=== PATIENT | male | born 1990 | race African-American/Black ===

== ENCOUNTER → 2019-03-05 | Emergency (ER) | payer SELFPAY ==
[~2019-03-05] VITALS: Ht 180.3 cm; Wt 72.6 kg
[~2019-03-05] MED LIST: CEPHALEXIN500 MG ORAL; DIPHENHYDRAMINE25 M1 ORAL; IMITREX50 MG ORAL; NKM; PREDNISONE20 MG ORAL; TRIUMEQ 600-501 EACH PO
--- NOTE | 2019-03-05 07:36 | NUR ---
ED Nurse Note: Pt BIBA d/t pt's verbalization of allergic reaction. Pt is AOx3, ambulatory, on RA. Placed on bed. Per assessement, pt verbalized, "I just came from my friend's gym and i noticed my skin-this organ that i have for 30 years seems to start getting weird 45 mins ago." Pt's skin is intact, moist noted with minimal dryness around hands. No skin tear or discoloration noted. Pt denies taking any kind of medication this morning.
[2019-03-05 07:38] VITALS: BP 110/72
--- NOTE | 2019-03-05 07:38 | NUR ---
ED Nurse Note: Pt verbalized, "I feel like my throat is dry".
--- NOTE | 2019-03-05 07:40 | NUR ---
ED Nurse Note: ERMD on bedside.
--- NOTE | 2019-03-05 07:50 | NUR ---
ED Nurse Note: Pt left ER before d/c prescriptions and follow-up papers were provided. Pt's VSS, RA; no signs of acute distress. Encouraged pt to stay to wait for his papers but insistedly left against medical advice. Pt left ER ambulatory with steady gait, no acute distress noted.
--- NOTE | 2019-03-05 09:30 | Emergency Room Report ---
History of Present Illness General Chief Complaint: General Complaint Source: Patient Present Illness HPI 28-year-old male presents ED for evaluation. Complaining of throat dryness and scratchiness. Also complaining of rash to his hands and arms. Brought in by EMS from [facility]. When asked how long he has had these symptoms patient became agitated. Denies drug use. Denies alcohol use. Denies pain. Denies fevers or chills. Notes runny nose and congestion. Denies cough. Denies known food or drug allergies. No other aggravating relieving factors. Denies any other associated symptoms Allergies: Coded Allergies: No Known Allergies (Unverified , 05/27/13) Patient History Past Medical History: none Past Surgical History: none Pertinent Family History: none Social History: Denies: smoking, alcohol use, drug use Immunizations: UTD Reviewed Nursing Documentation: PMH: Agreed; PSxH: Agreed Nursing Documentation-PMH Past Medical History: No History, Except For Review of Systems All Other Systems: negative except mentioned in HPI Physical Exam Vital Signs Date Time Temp Pulse Resp B/P (MAP) Pulse Ox O2 Delivery O2 Flow Rate FiO2 03/05/19 07:26 98.4 86 16 110/72 (85) 98 Room Air Sp02 EP Interpretation: reviewed, normal General Appearance: no apparent distress, alert, GCS 15, non-toxic Head: normocephalic, atraumatic Eyes: bilateral eye normal inspection, bilateral eye PERRL ENT: hearing grossly normal, normal pharynx, no angioedema, normal voice Neck: full range of motion, supple/symm/no masses Respiratory: chest non-tender, lungs clear, normal breath sounds, speaking full sentences Cardiovascular #1: regular rate, rhythm, no edema Cardiovascular #2: 2+ carotid (R), 2+ carotid (L), 2+ radial (R), 2+ radial (L) , 2+ dorsalis pedis (R), 2+ dorsalis pedis (L) Gastrointestinal: normal bowel sounds, non tender, soft, non-distended, no guarding, no rebound Rectal: deferred Genitourinary: normal inspection, no CVA tenderness Musculoskeletal: back normal, normal range of motion, gait/station normal, non- tender Neurologic: alert, motor strength/tone normal, oriented x3, sensory intact, responsive, speech normal Psychiatric: judgement/insight normal, memory normal, mood/affect normal, no suicidal/homicidal ideation Reflexes: 3+ bicep (R), 3+ bicep (L), 3+ tricep (R), 3+ tricep (L), 3+ knee (R) , 3+ knee (L) Skin: rash Lymphatic: no adenopathy Medical Decision Making Diagnostic Impression: Primary Impression: Rash ER Course Hospital Course 28 yo M presents with throat scratchiness, rash to arms and hands Differential diagnoses include: Cellulitis, dermatitis, insect bite, abscess Clinical course Patient placed on stretcher. After initial history, physical exam reveals a male in no acute distress. On exam there he has no pharyngeal erythema. No exudates. No lymphadenopathy. Lungs clear. Patient notes some scaliness and dryness of the skin on the arms and hands. Shows me some fissures in the creases of his hands. Patient states it is very itchy. Will prescribe Benadryl and steroids. Will prescribe antibiotics. Patient during ED assessment was very labile with his temper sometimes combative and agitated. Prior to receiving discharge papers patient walked out of ED Diagnosis - rash patient eloped from ED Last Vital Signs Date Time Temp Pulse Resp B/P (MAP) Pulse Ox O2 Delivery O2 Flow Rate FiO2 03/05/19 07:50 98.4 68 18 110/74 100 Room Air Status: unchanged Disposition: ELOPED Condition: Stable Scripts Prednisone* (PREDNISONE*) 20 Mg Tablet 40 MG ORAL DAILY for 5 Days, #10 TAB Prov: Jose Alfredo Moran MD 03/05/19 Diphenhydramine Hcl* (DIPHENHYDRAMINE HCL*) 25 Mg Capsule 25 MG ORAL Q6H PRN for Itching for 5 Days, #30 CAP 0 Refills Prov: Jose Alfredo Moran MD 03/05/19 Cephalexin* (KEFLEX*) 500 Mg Capsule 500 MG ORAL EVERY 6 HOURS for 7 Days, CAP Prov: Jose Alfredo Moran MD 03/05/19 Referrals: Jimenez Sanon Patient Instructions: Rash, [id number] Jose Alfredo Mroan MD Mar 05, 2019 09:30
== END | disposition left against medical advice (07) ==
LOC: EDUNIT# 07:22 → EDBD 07:30 → EMR 07:55
DX: R21 Rash and other nonspecific skin eruption (principal)
CPT/HCPCS: 99282